=== PATIENT | male | born 1955 | race African-American/Black ===

== ENCOUNTER 2018-11-22 12:31 | Emergency (ER) | payer MEDICARE, MEDICAID ==
[~2018-11-22] VITALS: Ht 165.1 cm; Wt 54.0 kg
[2018-11-22] MEDS ORDERED: FENTANYL CITRATE/PF 50MCG/ML 2ML VIAL IV ONE ×2 (14:15→15:15)
[2018-11-22] MEDS ORDERED: KETOROLAC 30MG/ML VIAL ONE (15:07)
[2018-11-22] MEDS ORDERED: KETOROLAC 30MG/ML VIAL IV ONE (15:15)
[2018-11-22] MEDS ORDERED: MIDAZOLAM HCL 2 MG/2 ML VIAL IV ONE (15:15)
[2018-11-22 17:16] VITALS: BP 122/66
== END 2018-11-22 17:17 | disposition home or self-care (01) ==
LOC: ER 12:31
DX: T84.020A Dislocation of internal right hip prosthesis, initial encounter (principal); X58.XXXA Exposure to other specified factors, initial encounter; Y93.9 Activity, unspecified; M19.90 Unspecified osteoarthritis, unspecified site; Z96.643 Presence of artificial hip joint, bilateral; Z98.890 Other specified postprocedural states
CPT/HCPCS: 27250; 72170; 96374; 96375; 96376; 99284; J1885; J2250; J3010

== ENCOUNTER 2019-11-13 05:35 | Emergency (ER) | payer MEDICARE, MEDICAID ==
[~2019-11-13] VITALS: Ht 165.1 cm; Wt 50.0 kg
[2019-11-13] MEDS ORDERED: FENTANYL CITRATE/PF 50MCG/ML 2ML VIAL IV ONE ×2 (08:30→11:45)
[2019-11-13] MEDS ORDERED: MIDAZOLAM HCL 2 MG/2 ML VIAL IV ONE (11:45)
[2019-11-13 13:35] VITALS: BP 112/73
== END 2019-11-13 14:03 | disposition home or self-care (01) ==
LOC: ER 05:35
DX: S73.004A Unspecified dislocation of right hip, initial encounter (principal); R00.0 Tachycardia, unspecified; X58.XXXA Exposure to other specified factors, initial encounter; Y93.89 Activity, other specified; Y92.89 Other specified places as the place of occurrence of the external cause; Y99.8 Other external cause status
CPT/HCPCS: 27265; 73501; 73502; 93005; 99152; 99285; J2250; J3010; 27250